=== PATIENT | male | born 1960 | race Caucasian/White ===

== ENCOUNTER 2017-04-08 09:44 | Day surgery (SDC) | payer OTHER ==
[2017-04-08] MEDS ORDERED: Lactated Ringers 1,000 ML IV SCH (10:15)
[2017-04-08] MEDS ORDERED: fentaNYL 100 MCG/2 ML SDV ONE (10:45)
[2017-04-08] MEDS ORDERED: Midazolam 1 MG/ML 2 ML SDV ONE (10:45)
[2017-04-08] MEDS ORDERED: Propofol 200 MG/20 ML SDV ONE ×2 (10:45→11:16)
--- NOTE | 2017-04-08 15:07 | OR ---
DATE OF PROCEDURE: 04/08/2017 PREOPERATIVE DIAGNOSIS: History of colon polyps. POSTOPERATIVE DIAGNOSIS: Unremarkable colonoscopy, history of colon polyps. PROCEDURE: Colonoscopy to the cecum. ANESTHESIA: IV anesthesia with monitored anesthesia care. INDICATION: This 56-year-old white male is referred for a colonoscopy because of a history of colon polyps. He says his last colonoscopic exam was done 3 years ago. I counseled him for the procedure, including risks and alternatives, and he gave his informed consent to proceed. DESCRIPTION OF PROCEDURE: The patient was placed in the left lateral decubitus position. IV anesthesia was administered by the Anesthesia Service. Time-out was held. A rectal exam was performed, which was unremarkable. The flexible video Olympus colonoscope was introduced through his anus, up his rectum, and out his colon all way to the cecum. Once the cecum was reached, the scope was slowly withdrawn, examining the mucosa throughout. No mucosal abnormalities were noted. The scope was retroflexed in the rectum with the distal rectum appearing unremarkable. The scope was straightened and removed. He tolerated the procedure well. Micah Kennedy MD /[id number] MTDD
== END 2017-04-08 12:40 | disposition home or self-care (01) ==
LOC: JP.SDS 09:44
PROVIDERS: ATTEND Surgery
DX: Z12.11 Encounter for screening for malignant neoplasm of colon (principal); E78.00 Pure hypercholesterolemia, unspecified; J45.909 Unspecified asthma, uncomplicated; Z86.010 Personal history of colon polyps; Z98.890 Other specified postprocedural states
CPT/HCPCS: 45378; J2250; J2704; J3010; J7120

== ENCOUNTER 2019-08-07 06:47 | Day surgery (SDC) | payer OTHER ==
[2019-08-07] MEDS ORDERED: Dextrose 5%-Lactated Ringers 1,000 ML IV SCH (07:15)
[2019-08-07] MEDS ORDERED: fentaNYL 100 MCG/2 ML SDV ONE (08:10)
[2019-08-07] MEDS ORDERED: Midazolam 1 MG/ML 2 ML SDV ONE (08:10)
[2019-08-07] MEDS ORDERED: Propofol 200 MG/20 ML SDV ONE (08:10)
--- NOTE | 2019-08-13 15:21 | OR ---
DATE OF PROCEDURE: 08/07/2019 SURGEON: Thomas Mcmahon MD PREOPERATIVE DIAGNOSIS: History of colon polyps. POSTOPERATIVE DIAGNOSIS: No recurrent colonic pathology. OPERATIVE PROCEDURE: Flexible colonoscopy. ANESTHESIA: IV sedation. INDICATION FOR PROCEDURE: This is a 59-year-old male presenting for followup colonoscopy. He has had history of colon polyps in the past. The plan is to proceed with colonoscopy with biopsies and polypectomy as indicated. Potential risks including bleeding and perforation were discussed and the patient wishes to proceed. DETAILS OF PROCEDURE: The patient was taken to the operating room and placed in left lateral decubitus position. IV sedation was administered, after which the initial digital rectal exam was performed and was unremarkable. Colonoscope was then passed into the rectum with retroflexion revealing uncomplicated hemorrhoidal columns. The scope was then eventually passed to the level of the cecum. The prep was fairly good to that level. No pathology was seen, specifically there were no diverticula. There were no areas of colitis. No polyps or other signs of neoplasia. Scope was then withdrawn and the above findings reconfirmed and the procedure concluded. Given the patient's personal history of colon polyps, the next colonoscopy should be scheduled in roughly 5 years. Thomas Mcmahon MD /[id number]
== END 2019-08-07 10:06 | disposition home or self-care (01) ==
LOC: JP.SDS 06:47
PROVIDERS: ATTEND Surgery
DX: Z12.11 Encounter for screening for malignant neoplasm of colon (principal); Z86.010 Personal history of colon polyps
CPT/HCPCS: G0105; J2250; J2704; J3010; J7121

== ENCOUNTER 2021-01-06 14:46 | Emergency (ER) | payer OTHER ==
--- NOTE | 2021-01-06 15:38 | EDM.PDOC ---
ED HPI GENERAL MEDICAL PROBLEM - General Chief Complaint: Abdominal Pain Stated Complaint: INTESINES PLUGGED UP Time Seen by Provider: 01/06/21 15:30 Source of Information: Reports: Patient, Old Records, RN History Limitations: Reports: No Limitations - History of Present Illness INITIAL COMMENTS - FREE TEXT/NARRATIVE: 60 yo male presents with abdominal pain that began several minutes after he had finished lunch about 1330h today. He has not vomited. He had a normal BM this morning for him. No fever. Pain reminded him of a SBO that he had about 7 yrs ago that resolved with NG suction at [facility]. Now in the ER he is feeling much better. Has had a mild cough for a few weeks, not getting worse. Feels chilled. No diarrhea. Onset: Today, Sudden Onset Date: 01/06/21 Onset Time: 13:00 Duration: Hour(s): (2), Improving Location: Reports: Abdomen Quality: Reports: Sharp Severity: Severe Improves with: Reports: Other (time) Worsens with: Reports: Eating (?) Context: Reports: Other (See HPI) Associated Symptoms: Reports: Nausea/Vomiting (no vomiting). Denies: Fever/Chills Treatments CALENDER RUNNER: Reports: Other (see below) (none) Abdominal Pain Score (Numeric/FACES): 8 - Related Data Allergies Allergy/AdvReac Type Severity Reaction Status Date / Time No Known Allergies Allergy Verified 01/06/21 15:22 Home Meds: Home Meds Aspirin [Halfprin] 81 mg PO DAILY 05/01/14 [History] atorvaSTATin [Lipitor] 20 mg PO DAILY 05/01/14 [History] Multivitamin with Minerals [Multiple Vitamin] 1 tab PO DAILY 05/08/14 [History] Sildenafil [Viagra] 20 mg PO BEDTIME PRN 05/08/14 [History] Fluticasone Propionate [Flonase] 2 spray INH BID 04/06/17 [History] NIFEdipine [Adalat cc] 30 mg PO DAILY PRN 04/06/17 [History] Albuterol Sulfate [Albuterol Sulfate Hfa] 8.5 gm IH ASDIRECTED 01/06/21 [History] Azithromycin 250 mg PO DAILY #4 tablet 01/06/21 [Rx] Fluticasone Propion/Salmeterol [Fluticasone-Salmeterol 500-50] 1 puff INH BID 01/06/21 [History] cephALEXin [Cephalexin] 500 mg PO Q6H #36 tablet 01/06/21 [Rx] Past Medical History HEENT History: Reports: Allergic Rhinitis, Other (See Below) Other HEENT History: nasal polyps removed Cardiovascular History: Reports: Heart Murmur, High Cholesterol Respiratory History: Reports: Asthma Gastrointestinal History: Reports: Bowel Obstruction, Colon Polyp Musculoskeletal History: Reports: Fracture Neurological History: Reports: Other (See Below) Other Neuro History: severe diana bite on left foot Oncologic (Cancer) History: Reports: Other (See Below) Other Oncologic History: testicular Dermatologic History: Reports: Other (See Below) Other Dermatologic History: severe frostbite on left foot - Past Surgical History HEENT Surgical History: Reports: Other (See Below) Other HEENT Surgeries/Procedures: left outer ear surgery as child Cardiovascular Surgical History: Reports: None Respiratory Surgical History: Reports: None GI Surgical History: Reports: Colonoscopy Neurological Surgical History: Reports: None Musculoskeletal Surgical History: Reports: None Oncologic Surgical History: Reports: None Dermatological Surgical History: Reports: None Social & Family History - Family History Family Medical History: No Pertinent Family History - Tobacco Use Tobacco Use Status *Q: Never Tobacco User - Caffeine Use Caffeine Use: Reports: None - Recreational Drug Use Recreational Drug Use: No ED ROS GENERAL - Review of Systems Review Of Systems: See Below Constitutional: Reports: No Symptoms HEENT: Reports: No Symptoms Respiratory: Reports: No Symptoms Cardiovascular: Reports: No Symptoms GI/Abdominal: Reports: Abdominal Pain, Distension (possibly), Nausea. Denies: Black Stool, Bloody Stool, Constipation, Diarrhea, Hematemesis, Hematochezia, Melena, Vomiting Skin: Reports: No Symptoms ED EXAM, GI/ABD - Physical Exam Exam: See Below Exam Limited By: No Limitations General Appearance: Alert, WD/WN, No Apparent Distress, Anxious Eyes: Bilateral: Normal Appearance Ears: Normal External Exam, Normal Canal, Hearing Grossly Normal, Normal TMs Nose: Normal Inspection, No Blood Throat/Mouth: Normal Inspection, Normal Lips, Normal Oropharynx, Normal Voice, No Airway Compromise Head: Atraumatic, Normocephalic Neck: Normal Inspection, Supple, Full Range of Motion Respiratory/Chest: No Respiratory Distress, Lungs Clear, Normal Breath Sounds, No Accessory Muscle Use Cardiovascular: Regular Rate, Rhythm, No Edema GI/Abdominal Exam: Normal Bowel Sounds, Soft, Non-Tender, No Distention Back Exam: Normal Inspection. No: CVA Tenderness (R), CVA Tenderness (L) Extremities: Normal Inspection, Normal Range of Motion, Non-Tender, No Pedal Edema Neurological: Alert, Oriented, CN II-XII Intact, Normal Cognition, No Motor/Sensory Deficits Psychiatric: Anxious Skin Exam: Warm, Dry, Intact, Normal Color, No Rash Course - Vital Signs Last Recorded V/S: Last Vital Signs Temp 39.3 C H 01/06/21 17:44 Pulse 108 H 01/06/21 17:44 Resp 18 01/06/21 15:28 BP 136/75 01/06/21 17:44 Pulse Ox 95 01/06/21 17:44 - Orders/Labs/Meds Orders: Active Orders 24 hr Category Date Time Status Chest 2V [CR] Stat Exams 01/06/21 17:44 Taken cefTRIAXone [Rocephin] 1 gm Med 01/06/21 18:54 Ordered Sodium Chloride 0.9% [Normal Saline] 50 ml IV ONETIME Saline Lock Insert [OM.PC] Routine Oth 01/06/21 16:23 Ordered Medication Orders Ceftriaxone Sodium 1 gm/ (Sodium Chloride) 50 mls @ 100 mls/hr IV ONETIME ONE Stop: 01/06/21 19:23 Labs: Laboratory Tests 01/06/21 01/06/21 01/06/21 Range/Units 17:38 17:50 17:50 WBC 16.4 H (4.5-11.0) K/uL RBC 4.24 L (4.30-5.90) M/uL Hgb 12.6 (12.0-15.0) g/dL Hct 38.1 L (40.0-54.0) % MCV 90 (80-98) fL MCH 30 (27-31) pg MCHC 33 (32-36) % Plt Count 298 (150-400) K/uL Sodium 137 L (140-148) mmol/L Potassium 3.4 L (3.6-5.2) mmol/L Chloride 101 (100-108) mmol/L Carbon Dioxide 23 (21-32) mmol/L Anion Gap 16.4 H (5.0-14.0) mmol/L BUN 15 (7-18) mg/dL Creatinine 1.1 (0.8-1.3) mg/dL Est Cr Clr Drug Dosing 64.02 mL/min Estimated GFR (MDRD) > 60 (>60) Glucose 106 (74-106) mg/dL Calcium 8.3 L (8.5-10.1) mg/dL C-Reactive Protein (0.0-0.3) mg/dL Urine Color Yellow (YELLOW) Urine Appearance Clear (CLEAR) Urine pH 7.0 (5.0-8.0) Ur Specific [place] 1.015 (1.008-1.030) Urine Protein Negative (NEGATIVE) mg/dL Urine Glucose (UA) Negative (NEGATIVE) mg/dL Urine Ketones Negative (NEGATIVE) mg/dL Urine Occult Blood Negative (NEGATIVE) Urine Nitrite Negative (NEGATIVE) Urine Bilirubin Negative (NEGATIVE) Urine Urobilinogen 0.2 (0.2-1.0) EU/dL Ur Leukocyte Esterase Negative (NEGATIVE) Urine RBC Not seen (0-5) Urine WBC Not seen (0-5) Ur Epithelial Cells Not seen Amorphous Sediment Few Urine Bacteria Not seen Urine Mucus Not seen SARS CoV-2 RNA Rapid GEETA 01/06/21 01/06/21 Range/Units 17:50 18:04 WBC (4.5-11.0) K/uL RBC (4.30-5.90) M/uL Hgb (12.0-15.0) g/dL Hct (40.0-54.0) % MCV (80-98) fL MCH (27-31) pg MCHC (32-36) % Plt Count (150-400) K/uL Sodium (140-148) mmol/L Potassium (3.6-5.2) mmol/L Chloride (100-108) mmol/L Carbon Dioxide (21-32) mmol/L Anion Gap (5.0-14.0) mmol/L BUN (7-18) mg/dL Creatinine (0.8-1.3) mg/dL Est Cr Clr Drug Dosing mL/min Estimated GFR (MDRD) (>60) Glucose (74-106) mg/dL Calcium (8.5-10.1) mg/dL C-Reactive Protein 0.80 H (0.0-0.3) mg/dL Urine Color (YELLOW) Urine Appearance (CLEAR) Urine pH (5.0-8.0) Ur Specific [place] (1.008-1.030) Urine Protein (NEGATIVE) mg/dL Urine Glucose (UA) (NEGATIVE) mg/dL Urine Ketones (NEGATIVE) mg/dL Urine Occult Blood (NEGATIVE) Urine Nitrite (NEGATIVE) Urine Bilirubin (NEGATIVE) Urine Urobilinogen (0.2-1.0) EU/dL Ur Leukocyte Esterase (NEGATIVE) Urine RBC (0-5) Urine WBC (0-5) Ur Epithelial Cells Amorphous Sediment Urine Bacteria Urine Mucus SARS CoV-2 RNA Rapid GEETA Negative Meds: Medications Generic Name Dose Route Start Last Admin Trade Name Freq PRN Reason Stop Dose Admin Ceftriaxone Sodium 1 gm/ 50 mls @ 100 mls/hr 01/06/21 18:54 Sodium Chloride IV 01/06/21 19:23 ONETIME ONE Discontinued Medications Generic Name Dose Route Start Last Admin Trade Name Freq PRN Reason Stop Dose Admin Acetaminophen 1,000 mg 01/06/21 17:44 01/06/21 17:58 Acetaminophen 500 Mg Tab PO 01/06/21 17:45 1,000 mg ONETIME ONE Administration Azithromycin 500 mg 01/06/21 18:54 Azithromycin 250 Mg Tab PO 01/06/21 18:55 ONETIME ONE Hydromorphone HCl 0.5 mg 01/06/21 16:24 Hydromorphone 0.5 Mg/0.5 Ml Syringe IVPUSH 01/06/21 16:25 ONETIME ONE Hydromorphone HCl 0.5 mg 01/06/21 17:42 Hydromorphone 0.5 Mg/0.5 Ml Syringe IVPUSH 01/06/21 17:43 ONETIME ONE Sodium Chloride 70 mls @ 3 mls/sec 01/06/21 16:45 01/06/21 16:49 Normal Saline IV 01/06/21 16:46 3 mls/sec ASDIRECTED GERMAINE Administration Iopamidol 94 ml 01/06/21 16:45 01/06/21 16:49 Iopamidol 612 Mg/Ml 100 Ml Bottle IV 01/06/21 16:46 94 ml . DIRECTED GERMAINE Administration Sodium Chloride 10 ml 01/06/21 16:23 Sodium Chloride 0.9% 10 Ml Syringe FLUSH 01/06/21 16:24 ASDIRECTED PRN Keep Vein Open Sodium Chloride 10 ml 01/06/21 16:34 01/06/21 16:49 Sodium Chloride 0.9% 10 Ml Syringe FLUSH 01/06/21 16:35 10 ml ONETIME ONE Administration - Radiology Interpretation Free Text/Narrative:: CT abd/pelvis with IV contrast-IMPRESSION: 1. Mildly dilated loops of small bowel without a well-defined single transition point. Appearance would favor an enteritis/ileus with differential diagnosis including a low-grade small bowel obstruction. 2. Prominent ground-glass opacities and nodular consolidation within the bilateral lower lungs. Appearance is suspicious for pneumonia including viral pneumonia. Please note that all CT scans at this facility use dose modulation, iterative reconstruction, and/or weight-based dosing when appropriate to reduce radiation dose to as low as reasonably achievable. CXR-retrocardiac infiltrate CT Results Date: 01/06/21 CT Results Time: 17:34 Departure - Departure Time of Disposition: 19:30 Disposition: Home, Self-Care 01 Condition: Fair Clinical Impression: Pneumonia Qualifiers: Pneumonia type: due to unspecified organism Laterality: unspecified laterality Lung location: lower lobe of lung Qualified Code(s): J18.9 - Pneumonia, unspecified organism - Discharge Information *PRESCRIPTION DRUG MONITORING PROGRAM REVIEWED*: No *COPY OF PRESCRIPTION DRUG MONITORING REPORT IN PATIENT CHUNG: No Prescriptions: Azithromycin 250 mg PO DAILY #4 tablet cephALEXin [Cephalexin] 500 mg PO Q6H #36 tablet Instructions: Community-Acquired Pneumonia, Adult, [id number] Referrals: Alhaji Lin [facility] SECRET[facility] [Primary Care Provider] - Forms: ED Department Discharge Additional Instructions: Use Zofran as directed for nausea control. Take either acetaminophen OR Percocet for pain relief. Take azithromycin every day at 7 pm until gone(250 mg). Take cephalexin 500 mg every 6 hrs until gone next dose at 7 pm tomorrow night. Return if worse. Recheck with your doctor later this week. Clear liquids only tonight, advance diet slowly as tolerated. The antibiotics Rx were sent to [facility]. Sepsis Event Note (ED) - Evaluation Sepsis Screening Result: No Definite Risk - Focused Exam Vital Signs: Vital Signs Temp Pulse Resp BP Pulse Ox 01/06/21 17:44 39.3 C H 108 H 136/75 95 01/06/21 16:41 117 H 130/81 01/06/21 15:28 37.4 C 116 H 18 142/87 H 95 01/06/21 15:02 37.4 C 116 H 18 142/87 H 95 - My Orders Last 24 Hours: My Active Orders 01/06/21 16:23 Saline Lock Insert [OM.PC] Routine 01/06/21 17:44 Chest 2V [CR] Stat 01/06/21 18:54 cefTRIAXone [Rocephin] 1 gm Sodium Chloride 0.9% [Normal Saline] 50 ml IV ONETIME - Assessment/Plan Last 24 Hours: My Active Orders 01/06/21 16:23 Saline Lock Insert [OM.PC] Routine 01/06/21 17:44 Chest 2V [CR] Stat 01/06/21 18:54 cefTRIAXone [Rocephin] 1 gm Sodium Chloride 0.9% [Normal Saline] 50 ml IV ONETIME
[2021-01-06] MEDS ORDERED: Sodium Chloride 0.9% 10 ML Syringe FLUSH PRN (16:23)
[2021-01-06] MEDS ORDERED: HYDROmorphone 0.5 MG/0.5 ML Syringe IVPUSH ONE ×2 (16:24→17:42)
[2021-01-06] MEDS ORDERED: Sodium Chloride 0.9% 10 ML Syringe FLUSH ONE (16:34)
[2021-01-06] MEDS ORDERED: Iopamidol 612 MG/ML 100 ML Bottle IV SCH (16:45)
--- NOTE | 2021-01-06 17:32 | CRLCT ---
For Patients: As a result of the Century Cures Act, medical imaging exams and procedure reports are released immediately into your electronic medical record. You may view this report before your referring provider. If you have questions, please contact your health care provider. INDICATION: Pain after eating TECHNIQUE: Axial images were obtained from the diaphragm to the pubic symphysis. Reformats were obtained in the coronal and sagittal plane. IV Contrast: 94 cc Isovue-300 Oral Contrast: None COMPARISON: Abdomen and pelvis CT 05/01/2014 FINDINGS: Lower chest: Ground-glass opacities and nodularity within the bilateral lower lungs. Liver: Unremarkable. Normal in size and attenuation. No masses. Gallbladder and bile ducts: Unremarkable. No stones or inflammation. No biliary dilatation. Spleen: Unremarkable. Normal in size without mass. Pancreas: Unremarkable. No mass or inflammation. Adrenal glands: Unremarkable. No nodules. Kidneys: Nonobstructing nephrolithiasis. Extrarenal pelvis on the left. Vasculature: Atherosclerosis without abdominal aortic aneurysm. GI tract: Multiple mildly dilated loops of small bowel without a well-defined single transition point. Mild small-bowel mucosal thickening questioned. Moderate amount of stool within the colon. Pelvis: Moderate bladder distention. Bones: Bilateral sacroiliac osteoarthritis. Unilateral spondylolysis on the left at L5. IMPRESSION: 1. Mildly dilated loops of small bowel without a well-defined single transition point. Appearance would favor an enteritis/ileus with differential diagnosis including a low-grade small bowel obstruction. 2. Prominent ground-glass opacities and nodular consolidation within the bilateral lower lungs. Appearance is suspicious for pneumonia including viral pneumonia. Please note that all CT scans at this facility use dose modulation, iterative reconstruction, and/or weight-based dosing when appropriate to reduce radiation dose to as low as reasonably achievable. Dictated by Tate Pak MD @ 01/06/2021 5:31:[address] Tate Pak @ Jan 06 2021 5:31PM
[2021-01-06] MEDS ORDERED: Acetaminophen 500 MG Tab PO ONE (17:44)
[2021-01-06] MEDS ORDERED: cefTRIAXone 1 GM in Sodium Chloride 0.9% 50 ML IV ONE (18:54)
[2021-01-06] MEDS ORDERED: Azithromycin 250 MG Tab PO ONE (18:54)
--- NOTE | 2021-01-07 09:30 | CR ---
CHEST: 2 view CLINICAL HISTORY:Cough and fever COMPARISON:2020 FINDINGS: Heart size and pulmonary vascular normal. There is patchy bilateral lower lobe infiltrates left greater than right. There is no effusion. IMPRESSION: Bilateral lower lobe infiltrates left greater than right
== END 2021-01-06 19:38 | disposition home or self-care (01) ==
LOC: JP.ED 14:46
DX: J18.9 Pneumonia, unspecified organism (principal); E78.00 Pure hypercholesterolemia, unspecified; J45.909 Unspecified asthma, uncomplicated; Z79.82 Long term (current) use of aspirin; Z79.899 Other long term (current) drug therapy; Z20.822 Contact with and (suspected) exposure to COVID-19
CPT/HCPCS: 36415; 71046; 74177; 80048; 81001; 85027; 86140; 87635; 96365; 99284; A9270; J0696; Q9967; U0002

== ENCOUNTER 2021-07-12 11:29 | Emergency (ER) | payer OTHER ==
[2021-07-12] MEDS ORDERED: Sodium Chloride 0.9% 10 ML Syringe FLUSH PRN (12:55)
[2021-07-12] MEDS ORDERED: Pantoprazole 40 MG Vial IVPUSH ONE (12:56)
== END 2021-07-12 18:03 | disposition home or self-care (01) ==
LOC: JP.ED 11:29
DX: D62 Acute posthemorrhagic anemia (principal); K92.1 Melena; F10.20 Alcohol dependence, uncomplicated; E78.00 Pure hypercholesterolemia, unspecified; J45.909 Unspecified asthma, uncomplicated; Z79.82 Long term (current) use of aspirin; Z79.899 Other long term (current) drug therapy
CPT/HCPCS: 36415; 80048; 84484; 85025; 85610; 85730; 86850; 86900; 86901; 93005; 96374; 99285; C9113